=== PATIENT | male | born 1990 | race Caucasian/White ===

== ENCOUNTER 2018-11-25 16:58 | Emergency (ER) | END 2018-11-25 20:49 | disposition left against medical advice (07) | LOC: EDBD → ER 16:58 | DX: Z53.21 Procedure and treatment not carried out due to patient leaving prior to being seen by health care provider (principal) ==

== ENCOUNTER 2018-12-22 11:43 | Emergency (ER) | payer MEDICAID ==
[2018-12-22] MEDS ORDERED: NORMAL SALINE 1000 ML 1,000 ML IV ONE (12:14)
[2018-12-22] MEDS ORDERED: DIPH/PERTUSS(ACELL)/TETANUS VAC/PF 0.5 ML SYR (>=10YO) IM ONE (12:14)
--- NOTE | 2018-12-22 12:16 | ER Document Report ---
ED Medical Screen (RME) - General Chief Complaint: Puncture Wound to Foot Stated Complaint: NAIL PUNCTURE TO FOOT Time Seen by Provider: 12/22/18 12:09 TRAVEL OUTSIDE OF THE [place] IN LAST 30 DAYS: No - HPI Notes: 12/22/18 12:15 Patient is a 28-year-old male that presents to the emergency department for chief complaint of muscle spasms. Patient reports about 10 days ago he was wearing a tennis shoe and stepped on 3 resting nails. He states they were initially swollen and red but have started to improve. Over the last few days he has had increased cramping in his right lower extremity and reports bilateral carpal pedal spasm on occasion. Patient denies any fevers or chills. He denies any respiratory difficulty or chest pain. He does not know when his last tetanus vaccination was. He also reports of the last 6 months he has had intermittent lymph nodes that swell in his right axilla and right inguinal region. He reports history of kidney and liver disease. He is currently IV heroin abuser and expresses concern for hepatitis C and is asking for hepatitis testing. Patient lives in [place] full-time and is down here for work. Social history: Daily tobacco, 6 beers daily, daily IV heroin use ROS: GENERAL: Denies fever of chills CV: Denies chest pain PHYSICAL EXAMINATION: GENERAL: Well-appearing, well-nourished and in no acute distress. HEAD: Atraumatic, normocephalic. EYES: Pupils equal round extraocular movements intact, conjunctiva are normal. ENT: Nares patent NECK: Normal range of motion LUNGS: No respiratory distress Musculoskeletal: Normal range of motion, 3 small puncture wounds on plantar right foot with no surrounding erythema, tenderness or bleeding NEUROLOGICAL: Normal speech, normal gait. PSYCH: Fidgety, anxious MDM: Patient seen and examined for rapid initial assessment. Vital signs reviewed. A comprehensive ED assessment and evaluation of the patient, analysis of test results and completion of the medical decision making process will be conducted by additional ED providers. - Related Data Allergies/Adverse Reactions: No Known Allergies Allergy (Verified 12/22/18 11:51) Physical Exam - Vital signs Vitals: Temp Pulse Resp BP Pulse Ox 97.8 F 96 20 153/91 H 100 12/22/18 11:50 12/22/18 11:50 12/22/18 11:50 12/22/18 11:50 12/22/18 11:50 Course - Vital Signs Vital signs: Temp Pulse Resp BP Pulse Ox 97.8 F 96 20 153/91 H 100 12/22/18 11:50 12/22/18 11:50 12/22/18 11:50 12/22/18 11:50 12/22/18 11:50
[2018-12-22 12:45] LABS: ABSOLUTE EOSINOPHILS # (AUTO) 0.1 10^3/uL (0.0-0.6); ABSOLUTE LYMPHOCYTES (AUTO) 1.5 10^3/uL (0.5-4.7); ABSOLUTE MONOCYTES (AUTO) 0.7 10^3/uL (0.1-1.4); ABSOLUTE NEUT (AUTO) 3.7 10^3/uL (1.7-8.2); BASOPHILS % (AUTO) 0.5 % (0-2); EOSINOPHILS % (AUTO) 1.7 % (0-6); HEMATOCRIT 43.1 % (37.9-51.0); HEMOGLOBIN 14.8 g/dL (13.5-17.0); LYMPHOCYTES % (AUTO) 24.4 % (13-45); MEAN CORPUSCULAR HEMOGLOBIN 31.4 pg (27.0-33.4); MEAN CORPUSCULAR HGB CONC 34.4 g/dL (32.0-36.0); MEAN CORPUSCULAR VOLUME 91 fl (80-97); PLATELET COUNT 244 10^3/uL (150-450); RED BLOOD COUNT 4.72 10^6/uL (4.35-5.55); RED CELL DISTRIBUTION WIDTH 14.2 % (11.5-14.0); SEGMENTED NEUTROPHILS % (AUTO) 62.4 % (42-78); TOTAL CELLS COUNTED % (AUTO) 100 %
[2018-12-22 13:12] LABS: ALANINE AMINOTRANSFERASE 187 U/L (21-72); ALBUMIN 4.3 g/dL (3.5-5.0); ALKALINE PHOSPHATASE 73 U/L (38-126); ANION GAP 8 (5-19); ASPARTATE AMINO TRANSFERASE 118 U/L (17-59); BILIRUBIN,DIRECT 0.3 mg/dL (0.0-0.4); BILIRUBIN,TOTAL 0.5 mg/dL (0.2-1.3); BLOOD UREA NITROGEN 9 mg/dL (7-20); CALCIUM 9.6 mg/dL (8.4-10.2); CARBON DIOXIDE 29 mmol/L (22-30); CHLORIDE 100 mmol/L (98-107); GLUCOSE 109 mg/dL (75-110); POTASSIUM 3.7 mmol/L (3.6-5.0); SODIUM 137.4 mmol/L (137-145); TOTAL PROTEIN 7.5 g/dL (6.3-8.2)
--- NOTE | 2018-12-22 14:14 | ER Document Report ---
ED General - General Chief Complaint: Puncture Wound to Foot Stated Complaint: NAIL PUNCTURE TO FOOT Time Seen by Provider: 12/22/18 12:09 Primary Care Provider: [facility] [Provider Group] - Follow up tomorrow [facility] [Provider Group] - Follow up as needed Mode of Arrival: Ambulatory Information source: Patient Notes: Patient presents complaining of muscle spasms to the bilateral upper and lower extremities off and on over the past 2 days. Patient states that he stepped on a nail 10 days ago with 3 puncture wounds to the right foot. Patient states that the foot initially was very painful and swollen but has since improved and is no longer tender. Patient denies any fever. Patient reports a previous history of IV drug use and states that he has been using periodically with his last use yesterday. Patient is concerned about possible hepatitis C. TRAVEL OUTSIDE OF THE [place] IN LAST 30 DAYS: No - HPI Onset: Other - Muscle cramps times 2 days Onset/Duration: Waxing and waning Quality of pain: Cramping Severity: Moderate Pain Level: Denies Associated symptoms: Other - Muscle cramps. denies: Chest pain, Nonproductive cough, Productive cough, Fever, Headache Exacerbated by: Denies Relieved by: Denies Similar symptoms previously: No Recently seen / treated by doctor: No - Related Data Allergies/Adverse Reactions: No Known Allergies Allergy (Verified 12/22/18 11:51) Past Medical History - General Information source: Patient - Social History Smoking Status: Current Every Day Smoker Chew tobacco use (# tins/day): No Frequency of alcohol use: Heavy Drug Abuse: Heroin Occupation: construction Lives with: Family Family History: Reviewed & Not Pertinent Patient has suicidal ideation: No Patient has homicidal ideation: No - Medical History Medical History: Negative Renal/ Medical History: Denies: Hx Peritoneal Dialysis Surgical Hx: Negative Review of Systems - Review of Systems Constitutional: No symptoms reported. denies: Fever, Recent illness EENT: No symptoms reported Cardiovascular: No symptoms reported. denies: Chest pain Respiratory: No symptoms reported. denies: Cough, Short of breath Gastrointestinal: No symptoms reported. denies: Abdominal pain, Nausea, Vomiting Genitourinary: No symptoms reported Male Genitourinary: No symptoms reported Musculoskeletal: Muscle pain - Muscle cramps to the upper and lower extremities, none at this time. denies: Back pain Skin: Other - Tender lump to right axilla Hematologic/Lymphatic: No symptoms reported Neurological/Psychological: No symptoms reported. denies: Confusion, Weakness, Headaches Physical Exam - Vital signs Vitals: Temp Pulse Resp BP Pulse Ox 97.8 F 96 20 153/91 H 100 12/22/18 11:50 12/22/18 11:50 12/22/18 11:50 12/22/18 11:50 12/22/18 11:50 - General General appearance: Appears well, Alert In distress: None - HEENT Head: Normocephalic, Atraumatic Eyes: Normal Conjunctiva: Normal Nasal: Normal Mouth/Lips: Normal Mucous membranes: Normal Pharynx: Normal Neck: Normal, Supple. No: Lymphadenopathy - Respiratory Respiratory status: No respiratory distress Chest status: Nontender Breath sounds: Normal. No: Rales, Rhonchi, Stridor, Wheezing Chest palpation: Normal - Cardiovascular Rhythm: Regular Heart sounds: S1 appreciated, S2 appreciated Murmur: No Pulses: Normal: Radial, Dorsalis pedis - Back Back: Normal, Nontender. No: CVA tenderness - Extremities General upper extremity: Normal inspection, Nontender, Normal ROM General lower extremity: Normal inspection, Nontender, Normal ROM - Neurological Neuro grossly intact: Yes Cognition: Normal Anel Coma Scale Eye Opening: Spontaneous Anel Coma Scale Verbal: Oriented [place] Coma Scale Motor: Obeys Commands Anel Coma Scale Total: 15 - Psychological Associated symptoms: Normal affect, Normal mood - Skin Skin Temperature: Warm Skin Moisture: Dry Skin Color: Normal Skin irregularity: other - Healing puncture wound x3 to plantar surface of right foot, no surrounding erythema, no edema, no findings worrisome for infection. Patient with discrete half centimeter mildly erythematous papular lesion to right axilla, no fluctuance, no lymphangitis. Irregularity with: negative: Swelling, Tenderness, Warmth, Inflammation Course - Re-evaluation Re-evalutation: 12/22/18 13:[address] Yasmine Malave regarding patient presentation and diagnostic evaluation. Recommends added on CK magnesium and phosphorus testing at this time. 12/22/18 14:27 Patient nontoxic in appearance. No concern for sepsis. Patient without any findings worrisome for rhabdomyolysis, renal failure or other electrolyte abnormality. Patient does have a mild elevation of liver function tests. Patient does report daily alcohol use in addition to occasional IV heroin use and smoking. Patient with hepatitis panel that is pending at this time. Will give patient referral information for local primary care provider and encourage follow-up for repeat LFT testing. Patient without any abdominal pain symptoms. No concern for any biliary obstruction at this time. Discussed importance of avoidance of use of illicit substances with patient. 12/22/18 14:33 We will start patient on a course of Keflex and Bactrim given mildly inflamed appearance of nodular lesion to right axilla. No drainable abscess at this time. No lymphangitis. Good return precautions discussed with patient. - Vital Signs Vital signs: Temp Pulse Resp BP Pulse Ox 97.6 F 89 20 139/77 H 99 12/22/18 14:40 12/22/18 14:40 12/22/18 11:50 12/22/18 14:40 12/22/18 14:40 - Laboratory Result Diagrams: 12/22/18 12:25 12/22/18 12:25 Laboratory results interpreted by me: 12/22/18 12/22/18 12:25 12:25 RDW 14.2 H AST 118 H ALT 187 H 12/22/18 14:27 Labs- Entire Visit 12/22/18 12/22/18 12/22/18 12:25 12:25 12:25 WBC 6.0 RBC 4.72 Hgb 14.8 Hct 43.1 MCV 91 MCH 31.4 MCHC 34.4 RDW 14.2 H Plt Count 244 Seg Neutrophils % 62.4 Lymphocytes % 24.4 Monocytes % 11.0 Eosinophils % 1.7 Basophils % 0.5 Absolute Neutrophils 3.7 Absolute Lymphocytes 1.5 Absolute Monocytes 0.7 Absolute Eosinophils 0.1 Absolute Basophils 0.0 Sodium 137.4 Potassium 3.7 Chloride 100 Carbon Dioxide 29 Anion Gap 8 BUN 9 Creatinine 0.69 Est GFR ( Amer) > 60 Est GFR (Non-Af Amer) > 60 Glucose 109 Calcium 9.6 Phosphorus 3.1 Magnesium 1.7 Total Bilirubin 0.5 Direct Bilirubin 0.3 Neonat Total Bilirubin Not Reportable Neonat Direct Bilirubin Not Reportable Neonat Indirect Bili Not Reportable AST 118 H ALT 187 H Alkaline Phosphatase 73 Creatine Kinase Total Protein 7.5 Albumin 4.3 12/22/18 12:25 WBC RBC Hgb Hct MCV MCH MCHC RDW Plt Count Seg Neutrophils % Lymphocytes % Monocytes % Eosinophils % Basophils % Absolute Neutrophils Absolute Lymphocytes Absolute Monocytes Absolute Eosinophils Absolute Basophils Sodium Potassium Chloride Carbon Dioxide Anion Gap BUN Creatinine Est GFR ( Amer) Est GFR (Non-Af Amer) Glucose Calcium Phosphorus Magnesium Total Bilirubin Direct Bilirubin Neonat Total Bilirubin Neonat Direct Bilirubin Neonat Indirect Bili AST ALT Alkaline Phosphatase Creatine Kinase 116 Total Protein Albumin Discharge - Discharge Clinical Impression: Liver function test abnormality, Muscle cramps, IV drug user, axillary nodule Condition: Stable Disposition: HOME, SELF-CARE Instructions: Cephalexin ([facility]), Family Physicians / Practices, Leg Cramps ([facility]), Liver Function Abnormality ([facility]), Tetanus Immunization Given ([facility]), Trimethoprim-Sulfa ([facility]) Additional Instructions: Return immediately for any new or worsening symptoms Followup with your primary care provider, call tomorrow to make a followup appointment You had an elevation in your liver tests today. It is important that you see a primary doctor and have these labs reevaluated within the next week. Avoid heavy use of Tylenol, heavy use of alcohol and illicit substances such as heroin. Prescriptions: Cephalexin Monohydrate [Keflex 500 mg Capsule] 500 mg PO Q6H 5 Days capsule Sulfamethoxazole/Trimethoprim [Bactrim Ds Tablet] 1 each PO BID #20 tablet Forms: Smoking Cessation Education, Return to Work Referrals: [facility] [Provider Group] - Follow up as needed [facility] [Provider Group] - Follow up tomorrow
[2018-12-22 14:21] LABS: PHOSPHORUS 3.1 mg/dL (2.5-4.5)
[2018-12-22 14:41] VITALS: BP 139/77
[2018-12-23 09:40] LABS: HEPATITIS A AB IGM Negative (Negative); HEPATITIS B CORE AB IGM Negative (Negative); HEPATITS B SURFACE ANTIGEN Negative (Negative)
[2018-12-23 09:49] LABS: HEPATITIS C VIRUS ANTIBODY >11.0 s/co ratio (0.0-0.9)
== END 2018-12-22 14:44 | disposition home or self-care (01) ==
LOC: ER 11:43
DX: M62.838 Other muscle spasm (principal); R79.89 Other specified abnormal findings of blood chemistry; L98.9 Disorder of the skin and subcutaneous tissue, unspecified; S91.331A Puncture wound without foreign body, right foot, initial encounter; W45.0XXA Nail entering through skin, initial encounter; F11.10 Opioid abuse, uncomplicated; F17.200 Nicotine dependence, unspecified, uncomplicated
CPT/HCPCS: 99283; 96360; 90471; 36415; 82550; 83735; 84100; 85025; 80053; 80074; 90715; J7030

== ENCOUNTER 2019-01-06 19:14 | Emergency (ER) | payer SELFPAY ==
[2019-01-06 19:33] VITALS: BP 170/93
--- NOTE | 2019-01-06 19:58 | ER Document Report ---
ED Medical Screen (RME) - General Chief Complaint: Urinary Problem Stated Complaint: DARK URINATION Time Seen by Provider: 01/06/19 19:48 TRAVEL OUTSIDE OF THE [place] 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 Patient states that he has had darker urine, but is eating and drinking without difficulty. He is having normal bowel movements. Patient states that he does not feel dehydrated. Patient does use illicit drugs daily by injection and snorting. He was recently diagnosed with hepatitis C this past week. He has a scheduled appointment with [facility] on Friday for that. Denies any headache, fever, neck pain, URI, sore throat, chest pain, palpitations, syncope, cough, shortness of breath, wheeze, dyspnea, abdominal pain, nausea/vomiting/diarrhea, urinary retention, dysuria, hematuria, loss of control of bowel or bladder, numbness/tingling, saddle anesthesia, muscle paralysis/weakness, or rash. I have treated and performed a rapid initial assessment of this patient. A comprehensive ED assessment and evaluation of the patient, analysis of test results and completion of medical decision making process will be conducted by additional ED providers. PHYSICAL EXAMINATION: GENERAL: Well-appearing, well-nourished and in no acute distress. A&Ox4. Answers questions appropriately. LUNGS: Breath sounds clear to auscultation bilaterally and equal. No wheezes rales or rhonchi. HEART: Regular rate and rhythm without murmurs, rubs, gallops. ABDOMEN: Soft, nondistended abdomen. No guarding, no rebound. Normal bowel sounds present. No CVA tenderness bilaterally. Nontender Extremities: No cyanosis, clubbing, or edema b/l. NEUROLOGICAL: Normal speech, normal gait. PSYCH: Normal mood, normal affect. - Related Data Allergies/Adverse Reactions: No Known Allergies Allergy (Verified 01/06/19 19:15) Past Medical History Renal/ Medical History: Denies: Hx Peritoneal Dialysis Physical Exam - Vital signs Vitals: Temp Pulse Resp BP Pulse Ox 98.2 F 97 16 170/93 H 100 01/06/19 19:30 01/06/19 19:30 01/06/19 19:30 01/06/19 19:30 01/06/19 19:30 Course - Vital Signs Vital signs: Temp Pulse Resp BP Pulse Ox 98.2 F 97 16 170/93 H 100 01/06/19 19:30 01/06/19 19:30 01/06/19 19:30 01/06/19 19:30 01/06/19 19:30
[2019-01-06 20:39] LABS: ABSOLUTE EOSINOPHILS # (AUTO) 0.1 10^3/uL (0.0-0.6); ABSOLUTE LYMPHOCYTES (AUTO) 1.8 10^3/uL (0.5-4.7); ABSOLUTE MONOCYTES (AUTO) 0.8 10^3/uL (0.1-1.4); ABSOLUTE NEUT (AUTO) 2.5 10^3/uL (1.7-8.2); BASOPHILS % (AUTO) 0.9 % (0-2); EOSINOPHILS % (AUTO) 2.2 % (0-6); HEMATOCRIT 44.7 % (37.9-51.0); HEMOGLOBIN 15.7 g/dL (13.5-17.0); LYMPHOCYTES % (AUTO) 33.7 % (13-45); MEAN CORPUSCULAR HEMOGLOBIN 31.5 pg (27.0-33.4); MEAN CORPUSCULAR HGB CONC 35.1 g/dL (32.0-36.0); MEAN CORPUSCULAR VOLUME 90 fl (80-97); MONOCYTES % (AUTO) 16.1 % (3-13); PLATELET COUNT 252 10^3/uL (150-450); RED BLOOD COUNT 4.98 10^6/uL (4.35-5.55); RED CELL DISTRIBUTION WIDTH 14.4 % (11.5-14.0); SEGMENTED NEUTROPHILS % (AUTO) 47.1 % (42-78); TOTAL CELLS COUNTED % (AUTO) 100 %; WHITE BLOOD COUNT 5.3 10^3/uL (4.0-10.5)
[2019-01-06 20:47] LABS: APPEARANCE,URINE CLOUDY; BILIRUBIN,URINE NEGATIVE (NEGATIVE); COLOR,URINE YELLOW; GLUCOSE, URINE NEGATIVE (NEGATIVE); KETONES,URINE NEGATIVE (NEGATIVE); LEUKOCYTE ESTERASE,URINE NEGATIVE (NEGATIVE); NITRITE,URINE NEGATIVE (NEGATIVE); PROTEIN,URINE NEGATIVE (NEGATIVE); UROBILINOGEN,URINE NEGATIVE mg/dL (<2.0)
[2019-01-06 20:58] LABS: URINE BARBITURATES SCREEN NEGATIVE; URINE BENZODIAZEPINES SCREEN NEGATIVE; URINE COCAINE SCREEN UNCONFIRMED POSITIVE; URINE MARIJUANA (THC) SCREEN UNCONFIRMED POSITIVE; URINE METHADONE SCREEN NEGATIVE; URINE PHENCYCLIDINE SCREEN NEGATIVE
[2019-01-06 21:40] LABS: ALANINE AMINOTRANSFERASE 425 U/L (21-72); ALBUMIN 4.6 g/dL (3.5-5.0); ALKALINE PHOSPHATASE 85 U/L (38-126); ANION GAP 10 (5-19); ASPARTATE AMINO TRANSFERASE 304 U/L (17-59); BILIRUBIN,DIRECT 0.3 mg/dL (0.0-0.4); BILIRUBIN,TOTAL 0.8 mg/dL (0.2-1.3); BLOOD UREA NITROGEN 12 mg/dL (7-20); CALCIUM 10.1 mg/dL (8.4-10.2); CARBON DIOXIDE 27 mmol/L (22-30); CHLORIDE 97 mmol/L (98-107); CREATINE KINASE 133 U/L (55-170); GLUCOSE 93 mg/dL (75-110); PHOSPHORUS 4.2 mg/dL (2.5-4.5); POTASSIUM 3.5 mmol/L (3.6-5.0); SODIUM 133.7 mmol/L (137-145); TOTAL PROTEIN 8.3 g/dL (6.3-8.2)
== END 2019-01-06 22:48 | disposition left against medical advice (07) ==
LOC: ER 19:14
DX: R39.89 Other symptoms and signs involving the genitourinary system (principal); M62.838 Other muscle spasm; Z53.20 Procedure and treatment not carried out because of patient's decision for unspecified reasons
CPT/HCPCS: 36415; 80053; 80307; 81001; 82550; 83735; 84100; 84443; 85025; 99281